=== PATIENT | female | born 1950 | race Caucasian/White ===

== ENCOUNTER 2023-07-03 10:30 | Outpatient (RCR) | payer MEDICARE, SELFPAY | END 2023-09-12 11:19 | disposition home or self-care (01) | PROVIDERS: PCP Family Medicine; Visit Provider Family Medicine | DX: M79.631 Pain in right forearm (principal); M54.9 Dorsalgia, unspecified; M54.6 Pain in thoracic spine; M54.2 Cervicalgia; R29.3 Abnormal posture; R53.1 Weakness; Z51.89 Encounter for other specified aftercare | CPT/HCPCS: 97110; 97140; 97161; 97165; 97535; X5282 ==

== ENCOUNTER 2024-03-11 13:00 | Outpatient (RCR) | payer MEDICARE, SELFPAY | END 2024-05-14 09:45 | disposition home or self-care (01) | PROVIDERS: PCP Family Medicine; Visit Provider Family Medicine | DX: M54.50 Low back pain, unspecified (principal); Z51.89 Encounter for other specified aftercare | CPT/HCPCS: 97110; 97140; 97161 ==